=== PATIENT | male | born 1955 ===

== ENCOUNTER 2017-11-04 07:15 | Inpatient (IN) | payer BC, OTHER ==
[2017-12-27] MEDS ORDERED: LR 1,000 ML IV ONE (09:25)
[2017-12-27] MEDS ORDERED: LIDOCAINE 1% 2 ML INJ ID PRN (09:25)
[2017-12-27] MEDS ORDERED: morphINE PF 5 MG/10 ML INJ IT ONE (09:25)
[2017-12-27] MEDS ORDERED: ceFAZolin 2 GM/SWFI 2 GM/20 ML SYR IVP ONE (09:25)
[2017-12-27] MEDS ORDERED: morphINE SR 15 MG TAB PO ONE (09:25)
[2017-12-27] MEDS ORDERED: GABAPENTIN 300 MG CAP PO ONE (09:25)
[2017-12-27] MEDS ORDERED: ACETAMINOPHEN 500 MG TAB PO ONE (09:25)
--- NOTE | 2017-12-27 09:37 | PDANEPAE ---
ANE History of Present Illness 62 year old male w/ PMHx of HTN, Atrial ectopy, colitis, lumbar stenosis w/ RLE numbness/tingling presents for revision/removal of hardware & TLIF. ANE Past Medical History - Cardiovascular History Hx Hypertension: Yes Hx Arrhythmias: No Hx Chest Pain: No Hx Coronary Artery / Peripheral Vascular Disease: No Hx CHF / Valvular Disease: No Hx Palpitations: No Cardiovascular History Comment: ATRIAL ECTOPY - Pulmonary History Hx COPD: No Hx Asthma/Reactive Airway Disease: No Hx Recent Upper Respiratory Infection: No Hx Oxygen in Use at Home: No Hx Sleep Apnea: No Sleep Apnea Screening Result - Last Documented: Positive Pulmonary History Comment: URI IN 10/2017 - Neurologic History Hx Cerebrovascular Accident: No Hx Seizures: No Hx Dementia: No - Endocrine History Hx Diabetes: No Hypothyroid: No Hyperthyroid: No Obesity: no - Renal History Hx Renal Disorders: No - Liver History Hx Hepatic Disorders: No - Neurological & Psychiatric Hx Hx Neurological and Psychiatric Disorders: No Neurological / Psychiatric History Comment: currently all problems caused from spine - Cancer History Hx Cancer: No - Congenital Disorder History Hx Congenital Disorders: No - GI History Hx Gastrointestinal Disorders: Yes Gastrointestinal History Comment: collitis - Other Health History Other Health History: LUMBAR STENOSIS - Chronic Pain History Chronic Pain: Yes (RT LEG N/T) - Surgical History Prior Surgeries: LUMBAR FUSION 2010. RT KNEE SCOPE X2 ANE Review of Systems Review of systems is: negative Review of Systems: - Exercise capacity Exercise capacity: >=4 METS METS (RN): 5 METS ANE Patient History - Allergies Allergies/Adverse Reactions: No Known Allergies Allergy (Verified 10/24/17 11:04) - Home Medications Home medications: home medication list seen and reviewed Home Medications: Cyanocobalamin [Vitamin B12 (*)] 1,000 mcg PO DAILY 10/17/17 [Last Taken Unknown ] Eszopiclone [Lunesta] 3 mg PO HS 10/17/17 [Last Taken Unknown] Gabapentin [Neurontin 300 MG (*)] 600 mg PO TID 10/17/17 [Last Taken Unknown] Lisinopril [Zestril 10 mg (*)] 10 mg PO DAILY 10/17/17 [Last Taken Unknown] Nebivolol HCl [Bystolic 5 mg (*)] 5 mg PO DAILY 10/17/17 [Last Taken Unknown] Rosuvastatin Calcium [Crestor 5mg] 5 mg PO MWF 12/11/17 [Last Taken Unknown] inFLIXimab [Remicade Inj 100 mg (*)] 100 mg IV .[id number] 10/17/17 [Last Taken Unknown] - NPO status NPO Status: no food or drink >8 hours - Anes Hx Anes Hx: no prior problems - Smoking Hx Smoking Status: Never smoked Marijuana use: No - Alcohol Use Alcohol Use: Rarely - Family Anes Hx Family Anes Hx: neg - N/A Family Hx Anesthesia Complications: none ANE Labs/Vital Signs - Vital Signs Vital Signs: reviewed preoperatively; see RN documention for details Height: 185.42 cm Weight: 95.254 kg ANE Physical Exam - Airway Neck exam: FROM, increased neck circumference, short neck Mallampati Score: Class 2 Mouth exam: normal dental/mouth exam Mouth image: 1 - Implant - Pulmonary Pulmonary: no respiratory distress - Cardiovascular Cardiovascular: regular rate and rhythym - ASA Status ASA Status: III ANE Anesthesia Plan Anesthesia Plan: general endotracheal anesthesia Lines/Monitors: arterial line Total IV Anesthesia: No
[2017-12-27] MEDS ORDERED: THROMBIN (BOVINE) 20,000 UNIT VIAL TP ONE (09:38)
[2017-12-27] MEDS ORDERED: CHLORHEXIDINE GLUC HIBICLENS 118 ML BTL TP ONE (09:38)
[2017-12-27] MEDS ORDERED: BUPIVACAINE 0.25% 30 ML SDV ONE (09:38)
[2017-12-27] MEDS ORDERED: CITRATE DEXTROSE SOLN 500 ML BAG ONE ×2 (09:39→10:42)
[2017-12-27] MEDS ORDERED: BACITRACIN 50,000 UNITS/10 ML SYR IRR ONE (09:39)
--- NOTE | 2017-12-27 09:49 | PDHPUP ---
History & Physical Update H&P update statement: This history and physical update is based on an assessment of the patient which was completed after admission or registration (within 24 hours), but prior to the surgery/procedure. H&P update: H&P reviewed & patient examined, no change in patient's condition since H&P completed (All questions answered and they are willing to proceed. )
[2017-12-27] MEDS ORDERED: MIDAZOLAM 2 MG/2 ML VIAL IVP ONE (10:08)
[2017-12-27] MEDS ORDERED: REMIFENTANIL HCL 1 MG VIAL ONE ×4 (10:10→14:53)
[2017-12-27] MEDS ORDERED: fentaNYL 100 MCG/2 ML INJ ONE (10:10)
[2017-12-27] MEDS ORDERED: PROPOFOL 200 MG/20 ML VIAL ONE (10:10)
[2017-12-27] MEDS ORDERED: LIDOCAINE 2% 5 ML SDV ONE (10:10)
[2017-12-27] MEDS ORDERED: PROPOFOL/EMULSION 500 MG/50 ML BOTTLE IV ONE ×4 (10:10→14:51)
[2017-12-27] MEDS ORDERED: ROCURONIUM 50 MG/5 ML VIAL ONE ×2 (10:10→15:09)
[2017-12-27] MEDS ORDERED: ACETAMINOPHEN 500 MG TAB ONE (10:11)
[2017-12-27] MEDS ORDERED: MIDAZOLAM 2 MG/2 ML VIAL ONE (10:13)
[2017-12-27] MEDS ORDERED: ONDANSETRON 4 MG/2 ML VIAL ONE (11:44)
[2017-12-27] MEDS ORDERED: morphINE PF 5 MG/10 ML INJ ONE (12:43)
[2017-12-27] MEDS ORDERED: HYDROmorphONE/DILAUDID 2 MG/ML INJ ONE (15:02)
[2017-12-27] MEDS ORDERED: ceFAZolin 1 GM VIAL ONE (15:09)
[2017-12-27] MEDS ORDERED: DEXAMETHASONE 4 MG/ML VIAL ONE (15:09)
[2017-12-27] MEDS ORDERED: epHEDrine SULFATE 10 MG/ML SYR IVP PRN (15:49)
[2017-12-27] MEDS ORDERED: HYDROmorphONE/DILAUDID 1 MG/ML INJ IVP PRN (15:49)
[2017-12-27] MEDS ORDERED: DIAZEPAM 5 MG/ML 1 ML SYR IVP PRN (15:49)
[2017-12-27] MEDS ORDERED: LR 500 ML IV PRN (15:49)
[2017-12-27] MEDS ORDERED: ONDANSETRON 4 MG/2 ML VIAL IVP PRN ×2 (15:49→16:34)
[2017-12-27] MEDS ORDERED: NALOXONE HCL 0.4 MG/ML INJ IVP PRN (15:49)
[2017-12-27] MEDS ORDERED: PHENYLEPHRINE HCL 100 MCG/ML SYR IVP PRN (15:49)
[2017-12-27] MEDS ORDERED: PROMETHAZINE HCL 25 MG/ML INJ IVP PRN (15:49)
[2017-12-27] MEDS ORDERED: fentaNYL 100 MCG/2 ML INJ IVP PRN (15:49)
[2017-12-27] MEDS ORDERED: LABETALOL HCL 5 MG/ML 20 ML MDV IVP PRN (15:49)
[2017-12-27] MEDS ORDERED: HYDROmorphone HCL/NS 0.5 MG/ML SYR IVP PRN (16:34)
[2017-12-27] MEDS ORDERED: BISACODYL 10 MG SUPP PR PRN (16:34)
[2017-12-27] MEDS ORDERED: ONDANSETRON DISINTEGRATING 4 MG TAB PO PRN (16:34)
[2017-12-27] MEDS ORDERED: diphenhydrAMINE 25 MG CAP PO PRN (16:34)
[2017-12-27] MEDS ORDERED: MAGNESIUM HYDROXIDE 30 ML UDCUP PO PRN (16:34)
[2017-12-27] MEDS ORDERED: LACTULOSE 20 GM/30 ML UDCUP PO PRN (16:34)
[2017-12-27] MEDS ORDERED: NS W/ 20 KCl/L 1,000 ML IV SCH (16:45)
--- NOTE | 2017-12-27 16:45 | POSTOPPROG ---
Post Op Note Date of Operation: 12/27/17 Surgeon: Pablo Harrison Motor Transport Inspector: Peter WORKMAN Anesthesiologist: Patrick Anesthesia: GET(General Endotracheal) Pre-op Diagnosis: lumbar stenosis Post-op Diagnosis: same Indication: nerve compression, radiculopathy Procedure: L4-S1 HW removal, L2-4 laminectomies/TLIFs, L2-5 PSF Findings: Please see dictation Inf/Abcess present in the surg proc area at time of surgery?: No Depth: Organ Space EBL: 100-500 Complications: none Drains: Kashif Bautista Specimen(s): none PRADIP Addendum - Addendum .: S: Pt awake in PACU, denies pain or numbness/tingling O: AAOx3 NAD VSS MAEx4 Motor 5/5 BUE and BLE +LT Incision dressed cdi JPx1 Siddiqi in A: 62 yo M s/p L4-S1 HW removal, L2-4 laminectomies/TLIFs, L2-5 PSF P: PT/OT Pain management - duramorph given intraop Brace when OOB TEDs, SCDs, lovenox POD#1 Post op xrays pending DC heriberto in AM Call NS with any issues D/w Dr Harrison
--- NOTE | 2017-12-27 18:11 | POSTANESTH ---
Post Anesthetic Evaluation Cardiovascular Status: Normal, Stable, Similar to Pre-Op Cond Respiratory Status: Tx Decrease in SpO2 (Requiring 3L/min O2 via nasal canulla.) Level of Consciousness/Mental Status: Can Participate in Eval, Alert and Oriented Pain Control: Adequate, Prn Tx Ordered Nausea/Vomiting Control: Adequate, Prn Tx Ordered Complications Possibly Related to Anesthesia: None Noted
[2017-12-27] MEDS ORDERED: ceFAZolin 2 GM/DEXTROSE 100 ML IV SCH (19:00)
[2017-12-27] MEDS: GABAPENTIN 300 MG CAP PO SCH (21:11)
[2017-12-27] MEDS: SENNOSIDES/DOCUSATE SODIUM TAB PO SCH (21:11)
[2017-12-27] MEDS: ACETAMINOPHEN 500 MG TAB PO SCH (21:11)
[2017-12-27] MEDS: FAMOTIDINE 20 MG TAB PO SCH (21:11)
[2017-12-27] MEDS: ceFAZolin 2 GM/SWFI 2 GM/20 ML SYR IVP SCH (21:12)
--- NOTE | 2017-12-28 00:02 | GOP ---
[f rep st] OPERATIVE REPORT DATE OF OPERATION: 12/27/2017 SURGEON: Pablo Harrison MD HEAVY EQUIPMENT OPERATOR: Melissa Laureano PA-C. ANESTHESIA: General. PREOPERATIVE DIAGNOSIS: 1. Adjacent level stenosis L2-L3, L3-L4, with right lower extremity radiculopathy and weakness. 2. History of prior lumbar fusion L4 to S1. 3. Treatment refractory to nonoperative management. POSTOPERATIVE DIAGNOSIS: 1. Adjacent level stenosis L2-L3, L3-L4, with right lower extremity radiculopathy and weakness. 2. History of prior lumbar fusion L4 to S1. 3. Treatment refractory to nonoperative management. PROCEDURE PERFORMED: 1. Posterior arthrodesis with approach to L2, L3, L4, L5, S1. 2. Exploration of prior lumbar hardware with subsequent removal of the segmental hardware from L4, L 5, S1 from the cervical spine system. 3. Placement of bilateral pedicle screws into L2, L3, L4, L5, from the [employer] 4.75 system . 4. Decompressive laminectomy with bilateral medial facetectomies, L2-L3, L3-L4. 5. Right-sided L2-L3 transforaminal lumbar interbody fusion with an 8 x 28 mm titanium PEEK elevated cage filled with morselized autograft and allograft. 6. Right-sided L3-L4 transforaminal lumbar interbody fusion with an 8 x 28 mm titanium PEEK elevated cage filled with morselized autograft and allograft. 7. Posterolateral fusion on the left between L2 and L4 with morselized autograft and allograft. 8. Use of intraoperative 3D Stealth navigation. 9. Use of intraoperative fluoroscopy, less than 1 hour physician time. 10. Use of neuromonitoring. 11. Use of operating microscope. 12. Injection of preservative-free intrathecal narcotics. FINDINGS: SPECIMENS: None. ESTIMATED BLOOD LOSS: 500 mL. INDICATIONS: The patient is a 62-year-old gentleman who has undergone a prior lumbar fusion of L4 th rough S1 from which he did quite well for several years. He then presented with right lower extremit y radiculopathy with weakness. Imaging demonstrated severe spinal stenosis L2-L3, L3-L4, with latera l recess foraminal stenosis on the right side. After failing nonoperative interventions, after discu ssion of risks, benefits, and treatment alternatives, we decided to proceed forth with surgery as lynn cribed above. DESCRIPTION OF PROCEDURE: Patient was brought to the operating theater and underwent general endotra cheal anesthesia without complications. He had Venodynes, JASMIN hose, and the appropriate lines placed by Anesthesia. He was then flipped prone onto the Kashif table and all bony prominences were inspe cted and padded. The previous lumbar incision was identified and marked more cranially. This was th en infiltrated with Marcaine with epinephrine. The incision was taken down with the scalpel blade an d then using monopolar, taken down the midline through the lumbodorsal fascia until I reached the spi nous process of L2. We then completed a subperiosteal dissection out to the transverse process of L2 , L3, and L4. We were able identify the prior hardware, which was buried in bone. We then removed t he soft tissues from around the L4, L5, and S1 hardware. We explored it, however, it was solidly fus ed L4, L5 and S1. We then used a chisel to remove the bone from the screw heads and rods bilaterally from L4 to S1. We then sequentially removed the bilateral cap screws, rods, and pedicle screws from the L4, L5, and S1 levels and passed them off the field. We then attached the 3D Stealth navigation clamp to the spinous process of L3, and completed a 3D Stealth navigation spin. Using 3D Stealth na vigation, we then placed the elevator pilot holes for the bilateral pedicle screws into L2, L3, and then the r ight side at L4 which we then retrained the trajectory of the screw because it was previously noted t o be quite medial. We tapped and placed a 6.5 x 40 mm screw on the left at L2, a 6.5 x 50 mm screw o n the right L2, 6.5 x 55 mm screws bilaterally into L3, L4, and L5 from the [employer] 4.75 sys tem. Another 3D Stealth navigation spin demonstrated good placement of the hardware. At this point, using a combination of the bur tip on the drill bit, Kerrison punches, and Leksell rongeur, we compl eted decompressive laminectomy with bilateral medial facetectomies at L2-L3, and L3-L4. We then comp leted an aggressive facetectomy with foraminotomies on the right side at L2-L3, L3-L4 until the nerve s felt well decompressed. We then moved up to L2-L3 where I completed a right-sided L2-L3 diskectomy . We prepared the cartilaginous endplates and measured the interbody space. We placed an 8 x 28 mm titanium PEEK elevated cage filled with morselized autograft and allograft anteriorly toward the midl ine. We packed additional morcellized autograft in the disk space for interbody fusion. We let down distraction, moved down to L3-L4, where we completed a right-sided L3-L4 diskectomy. We prepared th e cartilaginous endplates and measured the interbody space. We then placed an 8 x 28 mm titanium PEE K elevated cage filled with morselized autograft and allograft anteriorly toward the midline. We let down distraction and packed additional morcellized autograft in the disk space for the interbody fus ion. We decorticated the bone on the left side between L2 and L4. The wound was irrigated copiously with bacitracin irrigation. We placed 2 lordotic rods into the heads of the screws between L2 and L 5 and secured them down with cap screws, which were then tightened per the die stamping press operator's setting. W e placed morselized autograft and allograft on the left side between L2 and L4 for the posterolateral fusion. We injected preservative-free intrathecal narcotics. Left a drain in the subfascial space. The wound was then closed in multiple layers using Vicryl sutures for the deep layers and Dermabond for the skin. The patient's wounds were dressed sterilely. He was then flipped supine onto the tra nsfer cart, where he was awakened, extubated, and taken to the recovery room in stable condition. There were no complications and no noted changes on neuromonitoring throughout the procedure. COMPLICATIONS: None. /[id number]/MODL
[2017-12-28] MEDS ORDERED: DIAZEPAM 5 MG TAB PO PRN (00:19)
[2017-12-28] MEDS: oxyCODONE IR 5 MG TAB PO PRN ×4 (05:57→21:11)
[2017-12-28] MEDS: ACETAMINOPHEN 500 MG TAB PO SCH ×3 (05:57→21:11)
[2017-12-28] MEDS: ceFAZolin 2 GM/SWFI 2 GM/20 ML SYR IVP SCH (05:57)
[2017-12-28] MEDS: METHOCARBAMOL 750 MG TAB PO PRN ×3 (07:07→21:11)
--- NOTE | 2017-12-28 09:00 | NEUSURGPN ---
Date of Surgery: 12/27/17 Post Op Day: 1 Assessment/Plan: Assessment: 62 yo M s/p L4-S1 HW removal, L2-4 laminectomies/TLIFs, L2-5 PSF POD #1 Plan: PT/OT Pain management - duramorph given intraop, pain currently well controlled with oral medications Brace when OOB TEDs, SCDs, lovenox POD#1 Post op xrays pending Siddiqi has been dc'd, patient still needs to void Ok to remove right IV Leave GALDINO in for today Patient discussed with Dr Harrison Please call neurosurgery with any questions/concerns Subjective: Patient has no complaints, overall doing well Objective: AxO x3 PERRL 5/5 BLE Sensation intact to light touch BLE Dressing CDI GALDINO present, not draining much Neuro Check Frequency: per routine Urinary Catheter in Place: No - Physician Discussed Patient with : Christy Neurosurgery Physical Exam - Vitals, I&O, Labs I and O 12/27/17 12/28/17 12/29/17 05:59 05:59 05:59 Intake Total 3330 Output Total 3550 Balance -220 Weight 95.254 kg Intake: Oral (ml) 580 IV Intake (ml) 2750 Output: Urine (ml) 2950 Catheter 2950 Estimated Blood Loss (ml) 500 GALDINO Drain Output (ml) 100 #1 Posterior Back Kashif 100 Bautista Vital Signs Temp Pulse Resp BP Pulse Ox 36.8 C 84 16 115/73 95 12/28/17 08:00 12/28/17 08:00 12/28/17 08:00 12/28/17 08:00 12/28/17 08:00 ICD10 Worksheet Patient Problems: Problems Problem Status Onset Lumbar stenosis Acute - ICD10 Problem Qualifiers (1) Lumbar stenosis
[2017-12-28] MEDS: GABAPENTIN 300 MG CAP PO SCH ×3 (09:04→21:12)
[2017-12-28] MEDS: LISINOPRIL 10 MG TAB PO SCH (09:05)
[2017-12-28] MEDS: CYANO/VITAMIN B12 1000 MCG TAB PO SCH (09:05)
[2017-12-28] MEDS: NEBIVOLOL HCL 5 MG TAB PO SCH (09:05)
[2017-12-28] MEDS: ROSUVASTATIN CALCIUM 10 MG TAB PO SCH (09:06)
[2017-12-28] MEDS: SENNOSIDES/DOCUSATE SODIUM TAB PO SCH ×2 (09:07→21:12)
[2017-12-28] MEDS: FAMOTIDINE 20 MG TAB PO SCH ×3 (10:39→21:13)
--- NOTE | 2017-12-28 10:58 | ASMTCMCOM ---
CM Note CM Note Notes: Patient is POD #1 L4-S1 hardware removal, L2-4 lami/TLIF, L2-5 PSF. He is doing very well and was motivated to work with PT. He lives with his Carli, and I anticipate he will discharge independently without needs. Case Management available if any arise. Date Signed: 12/28/2017 10:57 AM Electronically Signed By:Candy Ferrer RN
[2017-12-28] MEDS ORDERED: SCOPOLAMINE HYDROBROMIDE 1 MG/3 DAYS PATCH TD SCH (14:00)
[2017-12-28] MEDS: oxyCODONE CR 15 MG TAB PO SCH ×2 (14:11→21:11)
[2017-12-28] MEDS: ENOXAPARIN 40 MG/0.4 ML SYR SC SCH (17:24)
[2017-12-28] MEDS: TAMSULOSIN HCL 0.4 MG CAP PO SCH (21:39)
[2017-12-29] MEDS: oxyCODONE IR 5 MG TAB PO PRN ×6 (02:12→22:46)
[2017-12-29] MEDS: ACETAMINOPHEN 500 MG TAB PO SCH ×3 (05:26→22:45)
[2017-12-29] MEDS: METHOCARBAMOL 750 MG TAB PO PRN ×4 (05:26→23:31)
[2017-12-29] MEDS: ENOXAPARIN 40 MG/0.4 ML SYR SC SCH (07:33)
[2017-12-29] MEDS: ROSUVASTATIN CALCIUM 10 MG TAB PO SCH (07:33)
[2017-12-29] MEDS: oxyCODONE CR 15 MG TAB PO SCH ×2 (07:33→20:35)
[2017-12-29] MEDS: FAMOTIDINE 20 MG TAB PO SCH ×2 (07:34→20:36)
[2017-12-29] MEDS: TAMSULOSIN HCL 0.4 MG CAP PO SCH (07:34)
[2017-12-29] MEDS: GABAPENTIN 300 MG CAP PO SCH ×3 (07:35→22:46)
[2017-12-29] MEDS: SENNOSIDES/DOCUSATE SODIUM TAB PO SCH ×2 (07:35→20:36)
[2017-12-29] MEDS: POLYETHYLENE GLYCOL 3350 17 GM PKT PO PRN (07:36)
[2017-12-29] MEDS: CYANO/VITAMIN B12 1000 MCG TAB PO SCH (07:36)
[2017-12-29] MEDS: LISINOPRIL 10 MG TAB PO SCH (07:43)
[2017-12-29] MEDS: NEBIVOLOL HCL 5 MG TAB PO SCH (07:44)
[2017-12-29] MEDS ORDERED: NS 500 ML IV ONE (09:00)
--- NOTE | 2017-12-29 09:43 | SOAPPROG ---
SOAP Progress Note Assessment/Plan: Assessment: 62 yo M POD #2 hardware removal and L2-5 fusion Plan: stable near syncope yesterday when upright, will hold BP meds today hg/hct stable will fu x-rays PT/OT scd/arya/lovenox for dvt prophylaxis please call with neuro changes discussed with Dr Harrison 12/29/17 09:42 Subjective: continued back pain, no leg pain, no weakness. Objective: Vital Signs Temp Pulse Resp BP Pulse Ox 36.5 C 58 L 16 95/59 L 90 L 12/29/17 07:47 12/29/17 07:47 12/29/17 07:47 12/29/17 07:47 12/29/17 07:47 Laboratory Results 12/28/17 14:24 12/29/17 09:09 12/28/17 12/29/17 12/30/17 05:59 05:59 05:59 Intake Total 3330 3100 Output Total 3550 1775 Balance -220 1325 AAOx4, +FC PERRL, EOMI, no facial droop 5/5 + light touch C/D/I ICD10 Worksheet Patient Problems: Problems Problem Status Onset Lumbar stenosis Acute
--- NOTE | 2017-12-29 14:41 | WOCRNPDOC ---
WOCRN Advanced Assessment Note - Skin Integrity Problem, Advanced Assess Right Anterior Ankle Pressure Injury Dressing Type: Open to Air Raven Wound Tissue: Intact Wound Bed Color: [place] (non-blanching) Site Measurement - Head-to-Toe Length X Width X Depth (cm): 0.4x1.2xintact Pressure Injury Stage: Stage 1 Pressure Injury Present on Admit: No Skin Integrity Problem Comment: Patient's JASMIN hose removed to reveal a small, pink, non-blanching area most likely caused by a fold in the JASMIN hose. This wound is consistent with a stage 1 adjunct faculty for medical terminology related pressure injury. Wound care will not continue to round on this wound.
[2017-12-29 20:20] VITALS: RESP 16
[2017-12-30] MEDS: oxyCODONE IR 5 MG TAB PO PRN ×4 (03:03→12:23)
[2017-12-30 03:07] VITALS: TEMP 98.1
[2017-12-30] MEDS: ACETAMINOPHEN 500 MG TAB PO SCH (06:09)
[2017-12-30] MEDS: METHOCARBAMOL 750 MG TAB PO PRN (06:09)
--- NOTE | 2017-12-30 08:00 | NEUSURGPN ---
Assessment/Plan: Assessment: 62 yo M POD #3 hardware removal and L2-5 fusion Plan: Xrays show stable hardware Pain management - dc oxycontin and change to MS contin in anticipation of DC, d/ w patient and his daughter hg/hct stable PT/OT scd/arya/lovenox for dvt prophylaxis please call with neuro changes Dispo: home today vs tomorrow pending clinical course May require home O2 Pt seen and discussed with Dr Harrison Subjective: Pt resting in bed, states he is doing ok this am. Continued back pain but meds help. Will try to talk more today. Objective: AAOx3 NAD VSS MAEx4 Motor 5/5 BLE Incision dressed cdi +LT Urinary Catheter in Place: No - Physician Discussed Patient with Dr.: Christy Patient Seen by : Christy Neurosurgery Physical Exam - Vitals, I&O, Labs I and O 12/29/17 12/30/17 12/31/17 05:59 05:59 05:59 Intake Total 3100 1700 Output Total 1775 20 Balance 1325 1680 Intake: Oral (ml) 3100 1200 IV Infused (ml) 500 Ns 500 ml @ 250 mls/hr IV 500 ONCE ONE Rx#:[id number] Output: Urine (ml) 1775 Urinal 1775 GALDINO Drain Output (ml) 20 #1 Posterior Back Kashif 20 Bautista Other: Intake Quantity Yes Yes Sufficient Output Comment Urinal straight cath Number of Voids Toilet 1 Urinal 1 Bladder Scan Volume (ml) Urinal 650 Vital Signs Temp Pulse Resp BP Pulse Ox 36.7 C 87 16 121/72 H 90 L 12/30/17 03:04 12/30/17 03:04 12/30/17 03:04 12/30/17 03:04 12/30/17 03:04 Laboratory Results 12/28/17 14:24 12/29/17 09:09 ICD10 Worksheet Patient Problems: Problems Problem Status Onset Lumbar stenosis Acute
[2017-12-30 08:08] VITALS: BP 120/74; PULSE 77
[2017-12-30] MEDS: SENNOSIDES/DOCUSATE SODIUM TAB PO SCH (08:28)
[2017-12-30] MEDS: CYANO/VITAMIN B12 1000 MCG TAB PO SCH (08:29)
[2017-12-30] MEDS: NEBIVOLOL HCL 5 MG TAB PO SCH (08:29)
[2017-12-30] MEDS: TAMSULOSIN HCL 0.4 MG CAP PO SCH (08:29)
[2017-12-30] MEDS: LISINOPRIL 10 MG TAB PO SCH (08:30)
[2017-12-30] MEDS: ROSUVASTATIN CALCIUM 10 MG TAB PO SCH (08:33)
[2017-12-30] MEDS: POLYETHYLENE GLYCOL 3350 17 GM PKT PO PRN (08:35)
[2017-12-30] MEDS: ENOXAPARIN 40 MG/0.4 ML SYR SC SCH (08:36)
[2017-12-30] MEDS: FAMOTIDINE 20 MG TAB PO SCH (08:45)
[2017-12-30] MEDS: GABAPENTIN 300 MG CAP PO SCH (08:45)
[2017-12-30] MEDS ORDERED: morphINE SR 15 MG TAB PO SCH (09:00)
--- NOTE | 2017-12-30 12:38 | ASDISCHSUM ---
Discharge Information Plan Status:Home with No Needs Medically Cleared to Leave: Discharge Date: CM D/C Disposition:Home, Routine, Self-Care ADT D/C Disposition:Home, Routine, Self-Care Projected Discharge Date: Transportation at D/C:Family Discharge Delay Reason: Follow-Up Date: Discharge Slot: Final Diagnosis: Placement Information Patient Contact Information Contact Name:BOB Relationship: Address:[address] City:[facility] Phone: State/Zip Code:[place] [address] Email: Financial Information Financial Class:HMO and PPO Plans Primary Plan Desc:[employer] [place] [employer] Primary Plan Number:[id number] Secondary Plan Desc: Secondary Plan Number: Assessment Information [facility] CM Progress Note CM Note CM Note Notes: Patient is POD #1 L4-S1 hardware removal, L2-4 lami/TLIF, L2-5 PSF. He is doing very well and was motivated to work with PT. He lives with his Carli, and I anticipate he will discharge independently without needs. Case Management available if any arise. Date Signed: 12/28/2017 10:57 AM Electronically Signed By:Candy Ferrer RN [facility] CM Progress Note CM Note CM Note Notes: Pt medically stable for d/c with family support, no CM d/c needs identified. Date Signed: 12/30/2017 12:37 PM Electronically Signed By:MOLLY Morejon Intervention Information
[2017-12-30 14:08] VITALS: O2SAT 88
--- NOTE | 2017-12-30 17:11 | PDHOMEO2F ---
Home Oxygen Face to Face Home Orders: I certify that a physician or a nurse practitioner or physician's nurse practitioner physicians assistant has had a [id number] encounter with this patient on the date of this order due to the diagnosis listed, which relates to the primary reason the patient requires home oxygen. Alternative treatments have been tried, or considered, and deemed ineffective. It is anticipated that supplemental oxygen will result in improvement with treatment. Home oxygen qualifying diagnosis: hypoxemia Home oxygen secondary diagnosis: s/p lumbar fusion surgery SpO2 on room air (%): 88 Frequency of home oxygen needed: continuous Home oxygen liters per minute: 2 Home oxygen delivery device: nasal cannula Concentrator: Yes E-tanks for mobility and back up: No If ordering portable O2, is the patient mobile in the home?: Yes I certify that, based on these findings, the home oxygen is medically necessary for this patient for the following length of time. Length of time home oxygen needed: 1 month Home Oxygen Comment: oxygen required until cleared by patient's PCP
[2017-12-31] MEDS ORDERED: PATCH REMOVAL 1 EA PATCH TD SCH (13:56)
== END 2017-12-30 13:33 | disposition home or self-care (01) | DRG 460 ==
LOC: F3N 12-27 09:16
PROVIDERS: ADMIT Neurological Surgery; ATTEND Neurological Surgery
PROC: 0SG10AJ Fusion of 2 or more Lumbar Vertebral Joints with Interbody Fusion Device, Posterior Approach, Anterior Column, Open Approach (ICD-10-PCS; principal; 2017-12-27 11:15)
PROC: 0ST20ZZ Resection of Lumbar Vertebral Disc, Open Approach (ICD-10-PCS; principal; 2017-12-27 11:15)
PROC: 0QP004Z Removal of Internal Fixation Device from Lumbar Vertebra, Open Approach (ICD-10-PCS; principal; 2017-12-27 11:15)
PROC: 01NB0ZZ Release Lumbar Nerve, Open Approach (ICD-10-PCS; principal; 2017-12-27 11:15)
DX: M47.26 Other spondylosis with radiculopathy, lumbar region (principal); M48.062 Spinal stenosis, lumbar region with neurogenic claudication; Z98.1 Arthrodesis status
CPT/HCPCS: 97116-GP; 97161-GP; 97166-GO; 97530-GP; 97535-GO; C1713; J0171; J0690; J1100; J1170; J1650; J2250; J2274; J2370; J2405; J2704; J3010; J7060